=== PATIENT | female | born 1970 | race Caucasian/White ===

== ENCOUNTER 2021-01-25 12:37 | Emergency (ER) | payer OTHER ==
[~2021-01-25] VITALS: Ht 152.4 cm; Wt 47.6 kg
[~2021-01-25 12:37] MED LIST: DEPAKOTE250 MG PO; PAXIL20 MG PO; PHENERGAN 25 MG25 M1 PO; XANAX 0.25 MG0.25 MG PO; ZONEGRAN100 MG PO
[2021-01-25 13:25] LABS: URINE BLOOD 3+ (Negative); URINE CLARITY CLEAR; URINE COLOR YELLOW; URINE GLUCOSE-RANDOM TRACE (Negative); URINE KETONES TRACE (Negative); URINE LEUKOCYTES-REFLEX NEGATIVE (Negative); URINE PROTEIN 2+ (Negative); URINE SPECIFIC GRAVITY >= 1.030 (1.005-1.030)
[2021-01-25 13:26] LABS: ICTOTEST (BILI CONFIRMATORY) Positive (Negative); URINE BILIRUBIN 1+ (Negative); URINE NITRITE-REFLEX POSITIVE (Negative)
[2021-01-25 13:33] LABS: BACTERIA-REFLEX 1-9 Few /HPF (None Seen); CASTS None Seen /LPF (None Seen); CRYSTALS None Seen /LPF (None Seen); MUCUS None Seen strn/LPF (None Seen); SQUAMOUS 4-10 Moderate /LPF (0-3); URINE WBC-REFLEX 6-15 Few /HPF (0-5)
[2021-01-25] MEDS ORDERED: KEFLEX500 M1 PO (14:06)
[2021-01-25 14:50] VITALS: BP 106/70
== END 2021-01-25 14:51 | disposition home or self-care (01) ==
LOC: M.ERS 12:37
PROVIDERS: Nurse Practitioner
DX: N39.0 Urinary tract infection, site not specified (principal); R31.9 Hematuria, unspecified; G43.909 Migraine, unspecified, not intractable, without status migrainosus; F17.210 Nicotine dependence, cigarettes, uncomplicated